=== PATIENT | female | born 1995 | race African-American/Black ===

== ENCOUNTER 2018-01-27 19:47 | Emergency (ER) | payer OTHER ==
[2018-01-27 21:03] LABS: KETONE, URINE AUTO RFX TRACE mg/dL (NEGATIVE); LEUKOCYTE ESTERASE UR AUTO RFX 3+ (NEGATIVE); MUCUS, URINE RFX LARGE (NEGATIVE); NITRITE, URINE AUTO RFX NEGATIVE (NEGATIVE); RBC, URINE AUTO RFX TNTC /HPF (0-3); SQUAM EPITHELIAL CELL UR AURFX 4 /HPF (0-6); WBC, URINE AUTO RFX TNTC /HPF (0-3)
[2018-01-27] MEDS: ONDANSETRON 4 MG ORAL DISINTEGRATING TAB (Q0162 PER 1MG) PO (21:52)
[2018-01-27] MEDS: CIPROFLOXACIN 500 MG TAB PO (21:52)
[2018-01-27] MEDS: PHENAZOPYRIDINE 100 MG TAB PO (21:52)
== END 2018-01-27 22:00 | disposition home or self-care (01) ==
LOC: M ED 19:47
DX: N30.01 Acute cystitis with hematuria (principal); F32.9 Major depressive disorder, single episode, unspecified; Z72.0 Tobacco use; Z79.899 Other long term (current) drug therapy
CPT/HCPCS: Q0162

== ENCOUNTER → 2018-03-25 | Outpatient (CLI) | payer OTHER | LOC: M LRY 14:30 | DX: R05 Cough (principal) | CPT/HCPCS: 81002 ==

== ENCOUNTER → 2018-03-25 | Outpatient (REF) | payer OTHER | LOC: M SFHCLERA 14:15 | DX: J02.9 Acute pharyngitis, unspecified (principal) ==

== ENCOUNTER 2018-07-29 22:56 | Emergency (ER) | payer OTHER ==
[~2018-07-29] VITALS: Ht 157.5 cm; Wt 65.5 kg
[~2018-07-29 22:56] MED LIST: CIPR-249 PO; EFFE37.5 PO; PYRI1TAB5 PO; ZOFR4TAB14 PO
[2018-07-29] MEDS ORDERED: METOCLOPRAMIDE INJ 10MG/2ML VIAL (J2765) IV ONE (23:45)
[2018-07-29] MEDS ORDERED: KETOROLAC 30 MG/ML VIAL (J1885) IV ONE (23:45)
[2018-07-29] MEDS ORDERED: diphenhydrAMINE INJ 50MG/ML VIAL (J1200) IV ONE (23:45)
[2018-07-29] MEDS ORDERED: NS 1,000 ML IV ONE (23:45)
--- NOTE | 2018-07-29 23:58 | REPVR ---
EXAM: CT Head Without Contrast EXAM DATE/TIME: 07/29/2018 11:36 PM CLINICAL HISTORY: 23 years old, female; Pain; Headache; Headache not specified; Additional info: New CHIN, n/v x 10 days TECHNIQUE: Axial computed tomography images of the head/brain without contrast. All CT scans at this facility use at least one of these dose optimization techniques: automated exposure control; mA and/or kV adjustment per patient size (includes targeted exams where dose is matched to clinical indication); or iterative reconstruction. COMPARISON: No relevant prior studies available. FINDINGS: Brain: Normal. No hemorrhage. No significant white matter disease. No edema. Ventricles: Normal. No ventriculomegaly. Bones/joints: Unremarkable. No acute fracture. Sinuses: Small mucus retention cyst in the left sphenoid sinus. Mild mucosal thickening of ethmoidal air cells. Mastoid air cells: Visualized mastoid air cells are unremarkable. No mastoid effusion. Soft tissues: Unremarkable. IMPRESSION: 1. No intracranial abnormality. 2. Mild sinus disease. Electronically signed by: Latoya Leigh On 07/29/2018 23:58:38 PM
[2018-07-30] LABS: BASO % 0.3 % (0.0-1.0); EOS % 0.5 % (0.0-3.0); HEMATOCRIT 40.6 % (36.0-47.0); HEMOGLOBIN 13.3 g/dl (12.0-15.5); LYMPH # 3.2 10^3/uL (1.5-6.5); LYMPH % 42.7 % (24.0-44.0); MEAN CORPUSCULAR HEMOGLOBIN 30.3 pg (27.0-33.0); MEAN CORPUSCULAR HGB CONC 32.8 g/dl (32.0-36.5); MEAN CORPUSCULAR VOLUME 92.5 fl (80.0-96.0); MONO # 0.7 10^3/uL (0.0-0.8); MONO % 9.5 % (0.0-5.0); NEUTROPHILS # 3.5 10^3/uL (1.8-7.7); NEUTROPHILS % 46.9 % (36.0-66.0); PLATELET COUNT, AUTOMATED 278 10^3/uL (150-450); RED BLOOD COUNT 4.39 10^6/uL (4.00-5.40); WHITE BLOOD COUNT 7.5 10^3/uL (4.0-10.0)
[2018-07-30 00:14] LABS: HCG, SERUM QUALITATIVE NEGATIVE (NEGATIVE)
[2018-07-30 00:23] LABS: ALBUMIN 4.1 GM/DL (3.2-5.2); ALT/SGPT 25 U/L (12-78); BILIRUBIN,DIRECT 0.1 MG/DL (0.0-0.2); BILIRUBIN,TOTAL 0.4 MG/DL (0.2-1.0); BLOOD UREA NITROGEN 8 MG/DL (7-18); CALCIUM LEVEL 9.2 MG/DL (8.5-10.1); CARBON DIOXIDE LEVEL 28 MEQ/L (21-32); CHLORIDE LEVEL 107 MEQ/L (98-107); CREATININE FOR GFR 0.74 MG/DL (0.55-1.30); GLOMERULAR FILTRATION RATE > 60.0 (>60); GLUCOSE, FASTING 96 MG/DL (70-100); LIPASE 98 U/L (73-393); POTASSIUM SERUM 3.8 MEQ/L (3.5-5.1); SODIUM LEVEL 141 MEQ/L (136-145); TOTAL PROTEIN 8.2 GM/DL (6.4-8.2)
[2018-07-30] MEDS ORDERED: REGL10TA6 PO (00:48)
[2018-07-30] MEDS ORDERED: NS 1,000 ML IV ONE (01:00)
[2018-07-30] MEDS ORDERED: MECLIZINE 25 MG TABLET PO ONE (01:00)
[2018-07-30 01:57] VITALS: BP 101/65
== END 2018-07-30 01:59 | disposition home or self-care (01) ==
LOC: M ED 22:56
DX: G43.909 Migraine, unspecified, not intractable, without status migrainosus (principal); R10.30 Lower abdominal pain, unspecified; R11.2 Nausea with vomiting, unspecified
CPT/HCPCS: 70450; 80048; 80076; 81001; 81025; 83690; 84703; 85025; 96374; 96375; 99284; J1200; J1885; J2765

== ENCOUNTER → 2019-03-30 | Outpatient (REF) | payer OTHER ==
[~2019-03-30] MED LIST changes: +REGL10TA6 PO
[2019-03-30 22:53] LABS: CHLAMYDIA DNA AMPLIFICATION NEGATIVE (NEGATIVE); GC DNA AMPLIFICATION NEGATIVE (NEGATIVE)
== END ==
LOC: M SFHCLERA 13:42
PROVIDERS: ATTEND Nurse Practitioner Family
DX: R30.0 Dysuria (principal)

== ENCOUNTER → 2019-03-30 | Outpatient (CLI) | payer OTHER ==
--- NOTE | 2019-03-30 13:46 | REP ---
ABDOMINAL SERIES: Supine and erect views of the abdomen demonstrate no free air or obstruction. There is mild fecal material scattered throughout the colon. No dilated small bowel loops are seen. There appears to be a tiny phlebolith in the left pelvis. An accompanying view of the chest demonstrates no acute infiltrate. The heart and mediastinum are within normal limits. IMPRESSION: No free air or obstruction. Electronically Signed by Rosas Huntley MD 03/31/2019 04:17 P
== END ==
LOC: M LRY 12:52
PROVIDERS: ATTEND Nurse Practitioner Family
DX: R30.0 Dysuria (principal)
CPT/HCPCS: 74021; 81002; 81025; 87086; 87661; 96372; G0463; J0696; J1885

== ENCOUNTER 2019-04-14 18:20 | Emergency (ER) | payer OTHER ==
[~2019-04-14] VITALS: Ht 157.5 cm; Wt 56.3 kg
[2019-04-14] MEDS ORDERED: NS 1,000 ML IV ONE (19:00)
[2019-04-14] MEDS ORDERED: KETOROLAC 30 MG/ML VIAL (J1885) IV ONE (19:00)
[2019-04-14] MEDS ORDERED: ONDANSETRON 4MG/2ML VIAL (J2405) IV ONE (19:00)
[2019-04-14 20:06] LABS: BASO % 0.1 % (0.0-1.0); EOS % 0.1 % (0.0-3.0); HEMATOCRIT 37.8 % (36.0-47.0); HEMOGLOBIN 12.8 g/dl (12.0-15.5); LYMPH % 10.3 % (24.0-44.0); MEAN CORPUSCULAR HEMOGLOBIN 31.4 pg (27.0-33.0); MEAN CORPUSCULAR HGB CONC 33.9 g/dl (32.0-36.5); MEAN CORPUSCULAR VOLUME 92.9 fl (80.0-96.0); MONO # 0.4 10^3/uL (0.0-0.8); MONO % 3.8 % (0.0-5.0); NEUTROPHILS # 8.2 10^3/uL (1.5-8.5); NEUTROPHILS % 85.4 % (36.0-66.0); PLATELET COUNT, AUTOMATED 321 10^3/uL (150-450); RED BLOOD COUNT 4.07 10^6/uL (4.00-5.40); WHITE BLOOD COUNT 9.6 10^3/uL (4.0-10.0)
[2019-04-14] MEDS ORDERED: ISOVUE-370 76% 100ML VIAL (Q9967) As Ordered ONE (20:12)
[2019-04-14 20:22] LABS: ALBUMIN 3.9 GM/DL (3.2-5.2); BILIRUBIN,DIRECT 0.2 MG/DL (0.0-0.2); BILIRUBIN,TOTAL 0.5 MG/DL (0.2-1.0); TOTAL PROTEIN 7.8 GM/DL (6.4-8.2)
--- NOTE | 2019-04-14 21:04 | REPVR ---
PROCEDURE INFORMATION: Exam: CT Abdomen And Pelvis With Contrast Exam date and time: 04/14/2019 8:14 PM Clinical history: 23 years old, female; Abdominal pain; Localized; Right lower quadrant (rlq); Additional info: Rlq pain, CVA tender R, recent pyelo TECHNIQUE: Imaging protocol: Computed tomography of the abdomen and pelvis with intravenous contrast. Radiation optimization: All CT scans at this facility use at least one of these dose optimization techniques: automated exposure control; mA and/or kV adjustment per patient size (includes targeted exams where dose is matched to clinical indication); or iterative reconstruction. Contrast material: ISOVUE 370; Contrast volume: 100 ml; Contrast route: IV; COMPARISON: No relevant prior studies available. FINDINGS: Lungs: Clear appearing lung bases. There is an 8mm density at the left lung base. To exclude any possibility of significant pathology recommend followup CT in 3 months for reevaluation to document that this resolves. Heart: Normal-sized heart. Liver: Normal-sized liver. Gallbladder and bile ducts: Normal common bile duct. Pancreas: Normal pancreas. Spleen: No splenomegaly. Adrenals: Normal. No mass. Kidneys and ureters: There is opacification of the kidneys. There is a punctate stone upper pole right kidney. There is a 2 CM cyst of the left kidney. Stomach and bowel: The cecum is in the right pelvis and the terminal ileum is distended with fluid. It is difficult to separate the appendix from the dilated terminal ileum. However there is a structure with bubbles of air and thought to be a normal appendix. To help clear the appendix it would be helpful to have a followup scan in 3 hours after oral contrast to opacify the cecum and appendix. Intraperitoneal space: There is no evidence of pneumoperitoneum. Vasculature: The hepatic veins do not opacify at this stage of contrast enhancement which is abnormal, however, the portal veins and renal veins are enhanced. There is opacification of the aorta which appears intact. Opacification of the SMV and the SMA. Lymph nodes: Unremarkable. No enlarged lymph nodes. Bladder: Normal urinary bladder. Reproductive: Normal-sized uterus. Bones/joints: There are very large collateral veins along the lower thoracic and upper lumbar spine. These large veins empty into the inferior vena cava. A CT scan of the chest with contrast should be obtained to exclude any possibility of obstruction of the superior vena cava. Soft tissues: No evidence of soft tissue abnormality. IMPRESSION: 1. There are large collateral veins at the level of the diaphragm and GE junction and throughout the margins of the spine. This involves the thoracic spine and lumbar spine. The venous channels empty into the inferior vena cava and left renal vein. There could be obstruction of the superior vena cava and therefore I would recommend a CT scan of the chest with contrast to evaluate the superior vena cava. 2. The appendix is somewhat difficult to opacify but thought to be normal in size. I would suggest having the patient drain oral contrast and rescanning after 3 hours to opacify the appendix. 3. 8mm density at the left lung base should be reevaluated with a followup CT in 3 months. Electronically signed by: Arturo Trujillo On 04/14/2019 21:03:54 PM
[2019-04-14] MEDS ORDERED: ONDA4TAB6 PO (21:46)
[2019-04-14 21:55] VITALS: BP 104/58
--- NOTE | 2019-04-15 06:14 | ED PDOC ---
Post-Departure Follow-Up amador lopez faxed formal report of ct abd/p for fu Davis Lopez MD Apr 15, 2019 06:14
[2019-04-15] MEDS ORDERED: OMEP40CA97 PO (15:25)
== END 2019-04-14 22:02 | disposition home or self-care (01) ==
LOC: M ED 18:20
DX: R10.30 Lower abdominal pain, unspecified (principal); N94.6 Dysmenorrhea, unspecified; R20.2 Paresthesia of skin; R93.5 Abnormal findings on diagnostic imaging of other abdominal regions, including retroperitoneum; R91.8 Other nonspecific abnormal finding of lung field; I87.8 Other specified disorders of veins; F17.200 Nicotine dependence, unspecified, uncomplicated; Z87.448 Personal history of other diseases of urinary system
CPT/HCPCS: 74177; 80047; 80076; 81001; 83690; 84702; 85025; 96374; 96375; 99284; J1885; J2405; Q9967

== ENCOUNTER 2019-04-15 13:29 | Emergency (ER) | payer OTHER ==
[~2019-04-15] VITALS: Ht 157.5 cm; Wt 57.0 kg
[~2019-04-15 13:29] MED LIST changes: +ONDA4TAB6 PO
[2019-04-15 14:57] LABS: HEMATOCRIT 34.9 % (36.0-47.0); HEMOGLOBIN 11.6 g/dl (12.0-15.5); MEAN CORPUSCULAR HEMOGLOBIN 31.4 pg (27.0-33.0); MEAN CORPUSCULAR HGB CONC 33.2 g/dl (32.0-36.5); MEAN CORPUSCULAR VOLUME 94.3 fl (80.0-96.0); PLATELET COUNT, AUTOMATED 267 10^3/uL (150-450); WHITE BLOOD COUNT 6.5 10^3/uL (4.0-10.0)
[2019-04-15 15:23] LABS: CK-MB VALUE MASS < 1.0 NG/ML (<3.6); CPK CREATINE PHOSPHOKINASE 92 U/L (26-192); MB/CK RELATIVE INDEX 1.09 (< OR =4); TROPONIN I < 0.02 NG/ML (< 0.10)
[2019-04-15] MEDS ORDERED: OMEP40CA97 PO (15:25)
--- NOTE | 2019-04-15 15:30 | REP ---
Chest x-ray: Two views. History: Chest pain . Comparison study: March 30, 2019 . Findings: The lungs are well inflated and free of infiltrate. The pleural angles are sharp. The heart size is normal. Pulmonary vasculature is not increased. No significant bony abnormality is seen. Impression: Negative chest x-ray. Electronically Signed by Jamir Harp MD 04/15/2019 03:22 P
[2019-04-15 15:37] VITALS: BP 104/69
--- NOTE | 2019-04-15 15:47 | ECGEPIP ---
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
== END 2019-04-15 16:10 | disposition home or self-care (01) ==
LOC: M ED 13:29
DX: K21.9 Gastro-esophageal reflux disease without esophagitis (principal); R00.1 Bradycardia, unspecified; F17.290 Nicotine dependence, other tobacco product, uncomplicated; Z82.49 Family history of ischemic heart disease and other diseases of the circulatory system; Z86.19 Personal history of other infectious and parasitic diseases; Z79.899 Other long term (current) drug therapy

== ENCOUNTER 2019-04-23 10:18 | Emergency (ER) | payer OTHER ==
[~2019-04-23] VITALS: Ht 157.5 cm; Wt 55.1 kg
[~2019-04-23 10:18] MED LIST changes: +OMEP40CA97 PO
[2019-04-23] MEDS ORDERED: BUPR75TA5 OR (10:39)
[2019-04-23 11:35] LABS: AMORPHOUS SEDIMENT SMALL (NEGATIVE); APPEARANCE, URINE CLOUDY (CLEAR); BACTERIA, URINE AUTO 1+ (NEGATIVE); BILIRUBIN, URINE AUTO NEGATIVE (NEGATIVE); BLOOD, URINE BLOOD NEGATIVE (NEGATIVE); COLOR, URINE YELLOW (YELLOW); GLUCOSE, URINE (UA) AUTO NEGATIVE (NEGATIVE); KETONE, URINE AUTO TRACE mg/dL (NEGATIVE); LEUKOCYTE ESTERASE, URINE AUTO TRACE (NEGATIVE); MUCUS, URINE LARGE (NEGATIVE); NITRITE, URINE AUTO NEGATIVE (NEGATIVE); PROTEIN, URINE AUTO NEGATIVE (NEGATIVE); RBC, URINE AUTO 9 /HPF (0-3); SPECIFIC GRAVITY URINE AUTO 1.023 (1.002-1.035); SQUAMOUS EPITHELIAL CELL UR AU 18 /HPF (0-6); WBC, URINE AUTO 4 /HPF (0-3)
[2019-04-23 11:49] LABS: BASO % 0.2 % (0.0-1.0); EOS # 0.1 10^3/uL (0.0-0.5); EOS % 1.2 % (0.0-3.0); HEMATOCRIT 35.2 % (36.0-47.0); HEMOGLOBIN 11.6 g/dl (12.0-15.5); LYMPH # 1.8 10^3/uL (1.5-5.0); LYMPH % 34.3 % (24.0-44.0); MEAN CORPUSCULAR HEMOGLOBIN 31.3 pg (27.0-33.0); MEAN CORPUSCULAR VOLUME 94.9 fl (80.0-96.0); MONO # 0.5 10^3/uL (0.0-0.8); MONO % 9.5 % (0.0-5.0); NEUTROPHILS # 2.8 10^3/uL (1.5-8.5); NEUTROPHILS % 54.6 % (36.0-66.0); PLATELET COUNT, AUTOMATED 273 10^3/uL (150-450); RED BLOOD COUNT 3.71 10^6/uL (4.00-5.40); WHITE BLOOD COUNT 5.2 10^3/uL (4.0-10.0)
[2019-04-23] MEDS ORDERED: ISOVUE-370 76% 100ML VIAL (Q9967) As Ordered ONE (12:08)
[2019-04-23] MEDS ORDERED: NS 1,000 ML IV ONE (12:15)
[2019-04-23] MEDS ORDERED: FAMOTIDINE IV BAG 20 MG in IV 1 EA IV ONE (12:15)
[2019-04-23] MEDS ORDERED: SUCR1SS PO (14:07)
[2019-04-23] MEDS ORDERED: RANI1TAB38 PO (14:07)
[2019-04-23 14:15] VITALS: BP 100/64
--- NOTE | 2019-04-23 14:40 | REP ---
CT ABDOMEN AND PELVIS WITH IV CONTRAST: TECHNIQUE: Axial contrast enhanced images from the lung bases to the pubic symphysis using 100 mL Isovue 370 intravenous contrast material with multiplanar reformations. COMPARISON: 04/14/2019. Visualized lung bases are clear. The liver, spleen, adrenals, pancreas, and kidneys are unremarkable. There is no hydronephrosis. There is no abdominal aortic aneurysm. There is no adenopathy. There is no free air or free fluid. There is no bowel wall thickening. The appendix is normal. I see no pelvic mass. Urinary bladder is not distended and not evaluated. IMPRESSION: No acute abnormality is detected. Electronically Signed by Rosas Huntley MD 04/24/2019 11:17 A
== END 2019-04-23 14:35 | disposition home or self-care (01) ==
LOC: M ED 10:18
DX: K29.00 Acute gastritis without bleeding (principal); K21.9 Gastro-esophageal reflux disease without esophagitis; F17.200 Nicotine dependence, unspecified, uncomplicated; Z79.899 Other long term (current) drug therapy
CPT/HCPCS: 74177; 80047; 81001; 84702; 85025; 96365; 96366; 99284; Q9967

== ENCOUNTER 2019-10-01 18:23 | Emergency (ER) | payer OTHER ==
[~2019-10-01] VITALS: Ht 157.5 cm; Wt 52.9 kg
[~2019-10-01 18:23] MED LIST changes: +BUPR75TA5 OR; +RANI1TAB38 PO; +SUCR1SS PO
[2019-10-01] MEDS ORDERED: QC A650T3 PO (18:27)
[2019-10-01] MEDS ORDERED: NS 1,000 ML IV ONE (19:15)
[2019-10-01] MEDS ORDERED: ONDANSETRON 4MG/2ML VIAL (J2405) IV ONE (19:15)
[2019-10-01] MEDS ORDERED: KETOROLAC 30 MG/ML VIAL (J1885) IV ONE (19:15)
[2019-10-01 19:35] LABS: BASO % 0.2 % (0.0-1.0); EOS % 0.1 % (0.0-3.0); HEMATOCRIT 36.6 % (36.0-47.0); HEMOGLOBIN 12.2 g/dl (12.0-15.5); LYMPH # 1.1 10^3/uL (1.5-5.0); LYMPH % 10.5 % (24.0-44.0); MEAN CORPUSCULAR HGB CONC 33.3 g/dl (32.0-36.5); MEAN CORPUSCULAR VOLUME 92.9 fl (80.0-96.0); MONO # 0.5 10^3/uL (0.0-0.8); MONO % 4.7 % (0.0-5.0); NEUTROPHILS # 8.8 10^3/uL (1.5-8.5); NEUTROPHILS % 84.1 % (36.0-66.0); PLATELET COUNT, AUTOMATED 257 10^3/uL (150-450); RED BLOOD COUNT 3.94 10^6/uL (4.00-5.40); WHITE BLOOD COUNT 10.4 10^3/uL (4.0-10.0)
[2019-10-01 19:56] LABS: ALBUMIN 3.9 GM/DL (3.2-5.2); ALT/SGPT 19 U/L (12-78); BILIRUBIN,DIRECT 0.1 MG/DL (0.0-0.2); BILIRUBIN,TOTAL 0.4 MG/DL (0.2-1.0); BLOOD UREA NITROGEN 10 MG/DL (7-18); CALCIUM LEVEL 9.5 MG/DL (8.5-10.1); CARBON DIOXIDE LEVEL 25 MEQ/L (21-32); CHLORIDE LEVEL 110 MEQ/L (98-107); CREATININE FOR GFR 0.84 MG/DL (0.55-1.30); GLOMERULAR FILTRATION RATE > 60.0 (>60); GLUCOSE, FASTING 96 MG/DL (70-100); LIPASE 52 U/L (73-393); POTASSIUM SERUM 3.9 MEQ/L (3.5-5.1); SODIUM LEVEL 138 MEQ/L (136-145); TOTAL PROTEIN 7.7 GM/DL (6.4-8.2)
--- NOTE | 2019-10-01 20:00 | REPVR ---
PROCEDURE INFORMATION: Exam: US Pelvis Limited, Transabdominal and US Pelvis, Transvaginal Exam date and time: 10/01/2019 7:48 PM Age: 24 years old Clinical indication: Pelvic pain; Additional info: Lower abd pain x 2 days TECHNIQUE: Imaging protocol: Real-time transabdominal and transvaginal pelvic ultrasound (limited) with image documentation. Transvaginal imaging was used for better evaluation of the endometrium and adnexa. COMPARISON: CT ABD/PEL W/IV CONTRAST ONLY 04/23/2019 12:11 PM FINDINGS: Uterus/cervix: Transabdominally, the uterus measures at least 7 x 2.9 by 3.7 cm. Endovaginally, the uterus measures 7.6 x 3.1 by 3.4 centimetres. The endometrial stripe measures 6 mm in thickness and demonstrates mild asymmetry. No abnormalities seen within the endometrium on color Doppler examination.. Right adnexa: The right ovary is not seen as a separate structure transabdominally. Endovaginally, the right ovary measures 1.6 by 3.4 x 2.8 cm. Arterial Blood flow demonstrated in the right ovary on pulse Doppler examination. Left adnexa: The left ovary is not seen as a separate structure transabdominally. Endovaginally, the left ovary measures 3.1 x 3.5 x 2 cm. Arterial blood flow demonstrated in the left ovary on color Doppler examination. Bladder: The bladder is poorly distended which limits visualization of the uterus and adnexa on the transabdominal portion of the study. IMPRESSION: 1. Mild asymmetry noted in the contour of the endometrium likely related to patient's current menses. No abnormality noted on color Doppler examination. Follow-up might be considered in 6 weeks. Electronically signed by: Inna Busby On 10/01/2019 20:00:20 PM
[2019-10-01] MEDS ORDERED: ACETAMINOPHEN 500 MG TAB PO ONE (22:00)
[2019-10-01] MEDS ORDERED: MAPA500C PO (22:25)
[2019-10-01] MEDS ORDERED: IBUP80TA PO (22:25)
[2019-10-01 22:37] VITALS: BP 102/59
--- NOTE | 2019-10-04 14:44 | ED PDOC ---
Post-Departure Follow-Up ft drum ob and [facility] fp faxed formal report of pelvic us for fu Davis Lopez MD Oct 04, 2019 14:44
== END 2019-10-01 22:39 | disposition home or self-care (01) ==
LOC: M ED 19:12
DX: R10.9 Unspecified abdominal pain (principal); R11.10 Vomiting, unspecified; N80.9 Endometriosis, unspecified; F17.290 Nicotine dependence, other tobacco product, uncomplicated; F12.10 Cannabis abuse, uncomplicated; Z79.899 Other long term (current) drug therapy
CPT/HCPCS: 76817; 76856; 80048; 80076; 81001; 83690; 85025; 93976; 96361; 96374; 96375; 99284; J1885; J2405

== ENCOUNTER 2019-11-22 14:57 | Emergency (ER) | payer OTHER ==
[~2019-11-22] VITALS: Ht 157.5 cm; Wt 51.9 kg
[~2019-11-22 14:57] MED LIST changes: +IBUP80TA PO; +MAPA500C PO; +QC A650T3 PO
[2019-11-22 15:30] LABS: BASO % 0.2 % (0.0-1.0); EOS # 0.1 10^3/uL (0.0-0.5); EOS % 0.9 % (0.0-3.0); HEMATOCRIT 34.1 % (36.0-47.0); HEMOGLOBIN 11.4 g/dl (12.0-15.5); LYMPH # 2.7 10^3/uL (1.5-5.0); LYMPH % 47.5 % (24.0-44.0); MEAN CORPUSCULAR HEMOGLOBIN 31.1 pg (27.0-33.0); MEAN CORPUSCULAR HGB CONC 33.4 g/dl (32.0-36.5); MEAN CORPUSCULAR VOLUME 93.2 fl (80.0-96.0); MONO # 0.6 10^3/uL (0.0-0.8); MONO % 9.7 % (0.0-5.0); NEUTROPHILS # 2.4 10^3/uL (1.5-8.5); NEUTROPHILS % 41.5 % (36.0-66.0); PLATELET COUNT, AUTOMATED 242 10^3/uL (150-450); RED BLOOD COUNT 3.66 10^6/uL (4.00-5.40); WHITE BLOOD COUNT 5.7 10^3/uL (4.0-10.0)
[2019-11-22 15:43] LABS: INR 1.07; PROTHROMBIN TIME 13.6 SECONDS (11.8-14.0)
[2019-11-22 15:56] LABS: ALBUMIN 3.7 GM/DL (3.2-5.2); ALT/SGPT 24 U/L (12-78); AMYLASE 60 U/L (25-115); BILIRUBIN,DIRECT 0.2 MG/DL (0.0-0.2); BILIRUBIN,TOTAL 0.4 MG/DL (0.2-1.0); BLOOD UREA NITROGEN 13 MG/DL (7-18); CARBON DIOXIDE LEVEL 28 MEQ/L (21-32); CHLORIDE LEVEL 108 MEQ/L (98-107); GLOMERULAR FILTRATION RATE > 60.0 (>60); GLUCOSE, FASTING 78 MG/DL (70-100); LIPASE 66 U/L (73-393); POTASSIUM SERUM 3.8 MEQ/L (3.5-5.1); SODIUM LEVEL 143 MEQ/L (136-145); TOTAL PROTEIN 7.3 GM/DL (6.4-8.2)
[2019-11-22 17:49] LABS: CHLAMYDIA DNA AMPLIFICATION NEGATIVE (NEGATIVE); GC DNA AMPLIFICATION NEGATIVE (NEGATIVE)
[2019-11-22 17:51] VITALS: BP 121/69
--- NOTE | 2019-11-23 04:35 | REP ---
Clinical: Right lower quadrant pain. Technique: Axial noncontrast images from the lung bases to the pubic symphysis with coronal and sagittal re-formations. Comparison: 04/23/2019. Findings: Lung bases are clear. Visualized heart and pericardium normal. Liver, spleen, pancreas, gallbladder, bilateral adrenal glands and kidneys are normal. The enteric system is without obstruction or acute inflammatory process. Normal terminal ileum and appendix identified in the right lower quadrant. Pelvis demonstrates normal bladder and age-appropriate uterus/adnexa. Phleboliths are again noted in the left bernardino pelvis. No ascites. No free air. No adenopathy. Abdominal aorta without aneurysm or dissection. Musculoskeletal structures are intact. Impression: Normal noncontrast CT of the abdomen and pelvis. No acute abdominopelvic pathology appreciated. Electronically Signed by Jimmy Sierra MD 11/23/2019 04:27 A
== END 2019-11-22 17:53 | disposition home or self-care (01) ==
LOC: M ED 14:57
DX: R10.9 Unspecified abdominal pain (principal); K21.9 Gastro-esophageal reflux disease without esophagitis; E28.2 Polycystic ovarian syndrome; F32.9 Major depressive disorder, single episode, unspecified; Z79.899 Other long term (current) drug therapy